=== PATIENT | male | born 1950 | race Caucasian/White ===

== ENCOUNTER 2018-11-05 14:36 | Emergency (ER) | payer OTHER, SELFPAY ==
[2018-11-05 14:37] VITALS: BP 145/95; PULSE 72; RESP 14; TEMP 36.8; O2SAT 97; BMI 25.8
--- NOTE | 2018-11-05 14:53 | RAD_ITS ---
STUDY: X-RAY - LEFT HAND REASON FOR EXAM: Male, 68 years old. Amputation. TECHNIQUE: 3 view(s) of the hand. COMPARISON: None. FINDINGS: Normal radiocarpal articulation. Normal distal radioulnar joint. Normal visualized carpal bones. Normal carpal articulations Normal carpometacarpal articulation of the thumb. Normal second through fifth carpometacarpal joints. Normal metacarpi. Normal metacarpophalangeal joint of the thumb. Normal interphalangeal joint of the thumb. Normal proximal and distal phalanges of the thumb. Normal metacarpophalangeal joints of the second through fifth fingers. Normal proximal and distal interphalangeal joints of the second through fifth fingers. There has been amputation of the distal phalanx of the index finger with overlying soft tissue swelling. Minimal remnant of the base of the distal phalanx of the index finger. Soft tissue laceration overlying the index finger. RAD/Hand Min 3 Views IMPRESSION: Amputation of the distal phalanx of the index finger. Electronically Signed: Raheem Rosario, at 15:19 EDT , Service support ,
[2018-11-05] MEDS: Diphth,Pertuss(Acell),Tet Vac 0.5 ML Vial IM (16:03)
[2018-11-05] MEDS: Cefazolin 1 GM/50 ML BAG IV (16:03)
[2018-11-05 16:07] LABS: Absolute Lymphocyte Count 1.24 X10^3/ul (0.83-4.51); Absolute Neutrophil Count 3.4 X10^3/uL (2.0-7.7); Basophil# 0.03 X10^3/uL; Basophil% 0.6 % (0-1); Eosinophil# 0.13 X10^3/uL; Eosinophils% 2.5 % (0-5); Hematocrit 39.7 % (40-54); Hemoglobin 13.6 g/dl (13.0-16.5); Lymphocyte # 1.24 X10^3/ul (4.0); Lymphocyte % 23.6 % (19-41); Mean Corp Hgb Conc 34.3 g/gl (32-36); Mean Corpuscular Hgb 29.1 pg (27.0-32.0); Mean Corpuscular Volume 84.8 fL (80-94); Mean Platelet Vol. 9.6 fl (6.2-12.0); Monocyte# 0.48 X10^3/uL; Monocyte% 9.1 % (0-10); Neutrophil # 3.37 X10^3/uL (2.7-7.7); Platelet Count 188 K/mm3 (150-450); RBC Distribution Width SD 45.5 fl (35.1-43.9); Red Blood Count 4.68 M/mm3 (4.6-6.2); White Blood Count 5.3 K/mm3 (4.4-11.0)
[2018-11-05 16:11] LABS: International Normalized Ratio 1.8
[2018-11-05 16:14] LABS: POSITIVE COUNT NO; POSITIVE DIFFERENTIAL NO; POSITIVE MORPHOLOGY NO
--- NOTE | 2018-11-05 16:38 | ED.VISSUMM ---
- ER Visit Summary Date of Service: 11/05/18 Chief Complaint: [Laceration left index finger] History of Present Illness: The patient is a 68 M [presents to the emergency department after sustaining an injury to his left index finger about 12:45 PM. Patient states that he was using a electric saw when he accidentally lacerated his left index finger and amputating the distal phalanx. Patient is right-hand dominant. Patient unsure of his last tetanus. 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 The DIP joint is exposed. No other significant injuries noted.] Test Results: [X-rays of the left index finger obtained showed an amputation of the distal phalanx through the base of the distal phalanx.] CBC with differential obtained showed a white count of 5.3, hemoglobin 13.6, hematocrit 40, placed 28. INR was 1.8. Emergency Department Course and Treatment: [Case was discussed initially with Dr. Jeannette James who asked that I irrigate the wound and attempt any type of soft tissue closure possible. Patient initially received Ancef 1 g IV and was given tetanus booster.] Laceration repair-patient had digital block performed using 8 cc 1% lidocaine. Wound was irrigated with copious saline. Wound was cleansed with Shur-Clens. Using 5-0 nylon a total of 2 single interrupted sutures placed to approximate the soft tissues. Clean dressing was applied. Treatment Plan: [Patient will see Dr. James in the office tomorrow for possible surgical intervention tomorrow. I feel patient will likely require a revision and partial amputation.] Disposition: [Discharged home stable condition. Patient will be given a prescription for Keflex and Percocet.] Impression: [Amputation of the left distal phalanx of index finger] This note was generated with Trulia dictation software. It may contain incorrect words, spelling, and punctuation that were not noted in review of the chart prior to signing ED Disposition - Plan for ED Patient: Referrals: Freddy Hay DO [Primary Care Provider] -
--- NOTE | 2018-11-05 16:42 | ED.DCSUM_ITS ---
- ER Visit Summary Date of Service: 11/05/18 Chief Complaint: [Laceration left index finger] History of Present Illness: The patient is a 68 M [presents to the emergency department after sustaining an injury to his left index finger about 12:45 PM. Patient states that he was using a electric saw when he accidentally lacerated his left index finger and amputating the distal phalanx. Patient is right-hand dominant. Patient unsure of his last tetanus. 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 The DIP joint is exp osed. No other significant injuries noted.] Test Results: [X-rays of the left index finger obtained showed an amputation of the distal phalanx through the base of the distal phalanx.] CBC with differential obtained showed a white count of 5.3, hemoglobin 13.6, hematocrit 40, placed 28. INR was 1.8. Emergency Department Course and Treatment: [Case was discussed initially with Dr. Jeannette James who asked that I irrigate the wound and attempt any type of soft tissue closure possible. Patient initially received Ancef 1 g IV and was given tetanus booster.] Laceration repair-patient had digital block performed using 8 cc 1% lidocaine. Wound was irrigated with copious saline. Wound was cleansed with Shur-Clens. Using 5-0 nylon a total of 2 single interrupted sutures placed to approximate the soft tissues. Clean dressing was applied. Treatment Plan: [Patient will see Dr. James in the office tomorrow for possible surgical intervention tomorrow. I feel patient will likely require a revision and partial amputation.] Disposition: [Discharged home stable condition. Patient will be given a prescription for Keflex and Percocet.] Impression: [Amputation of the left distal phalanx of index finger] This note was generated with [employer] dictation software. It may contain incorrect words, spelling, and punctuation that were not noted in review of the chart prior to signing ED Disposition - Plan for ED Patient: Referrals: Freddy Hay DO [Primary Care Provider] -
--- NOTE | 2018-11-05 16:42 | ED.DEP ---
ED Disposition - Plan for ED Patient: Instructions: ED Laceration Amputation Finger Tip Open Tx Prescriptions: Oxycodone HCl/Acetaminophen [Percocet 5/325] 1 tab PO Q6H PRN PRN 3 Days #12 tab PRN Reason: Pain Ondansetron [Zofran Odt] 4 mg PO Q8H PRN PRN #10 tab PRN Reason: Nausea Cephalexin [Keflex] 500 mg PO Q6 #40 cap Referrals: Freddy Hay DO [Primary Care Provider] - Komal James DO [STAFF PHYSICIAN] - 11/06/18 8:00 am Additional Instructions: Do not eat anything after Midnight tonight
[2018-11-05 17:12] VITALS: BP 138/77; PULSE 62; RESP 15; O2SAT 99
== END 2018-11-05 17:14 | disposition home or self-care (01) ==
LOC: ED 16:18
PROVIDERS: Emergency Provider Emergency Medicine; Family Provider Family Medicine; PCP Family Medicine
DX: S68.111A Complete traumatic metacarpophalangeal amputation of left index finger, initial encounter (principal); W27.0XXA Contact with workbench tool, initial encounter; Y93.9 Activity, unspecified; Y92.9 Unspecified place or not applicable; Z86.711 Personal history of pulmonary embolism; Z86.718 Personal history of other venous thrombosis and embolism; Z79.01 Long term (current) use of anticoagulants
CPT/HCPCS: 12001; 73130; 85025; 85610; 90715; 96365; 99284; J7050; A4216

== ENCOUNTER 2018-11-11 07:18 | Day surgery (SDC) | payer OTHER, SELFPAY ==
[2018-11-06 08:09] VITALS: BMI 25.8
[2018-11-11 07:38] VITALS: BP 118/84; PULSE 64; RESP 16; TEMP 36.6; O2SAT 100; BMI 27.0
[2018-11-11 07:40] LABS: Prothrombin Time Fingerstick 19.3 SEC (11.9-14.4)
[2018-11-11] MEDS: Cefazolin 2 GM in 0.9% Normal Saline 100 ML IV (08:29)
--- NOTE | 2018-11-11 08:35 | HP.PCM_ITS ---
History and Physical Date of Admission: 11/11/18 Intake Vital Signs 11/06/18 Body Mass Index (BMI) 25.8 Intake Visit Reasons: finger injury Allergies No Known Allergies Allergy (Verified 11/05/18 16:03) Medications Cephalexin [Keflex] 500 mg PO Q6 #40 cap 11/05/18 [Rx] Ondansetron [Zofran Odt] 4 mg PO Q8H PRN PRN #10 tab 11/05/18 [Rx] Oxycodone HCl/Acetaminophen [Percocet 5/325] 1 tab PO Q6H PRN PRN 3 Days #12 tab 11/05/18 [Rx] Warfarin [Coumadin ([facility])] 6 mg PO QODAY 11/05/18 [History Confirmed 11/05/18] Warfarin [Coumadin ([facility])] 7 mg PO QODAY 11/05/18 [History Confirmed 11/05/18] PFSH Social History Smoking Status: Never smoker HPI finger injury: Details: Parts of this documentation were recorded by a scribe, this docum entation accurately reflects the service provided and the decisions made by me, Komal James, 11/06/18 0757. BELKIS APARICIO is a 68 year old M here today for F/U from ER visit yesrterday. Patient was at work around 1245 on 11/05/18. He was using the saw cutting wood and his left index finger went under the saw blade and the blade amputated his left index finger off. He then went tot he ER and the ER was instructed to tack his finger tip back on. He is here today for follow-up and for surgical revision. Patient has a dressing on finger this day that he has bleed through. He is taking Percocet that he was given at the ER. Patient states his pain is only 3/10. Patient is also on Coumadin tx, patient has history of PEs, and blood clots in legs and also has not started his prescribed antibiotic given to him by er. tetanus was given in ER. Denies numbness, tingling or other associated symptoms. ROS Const Reports system reviewed and no additional complaints, except as docu Eyes Reports system reviewed and no additional complaints, except as docu ENT Reports system reviewed and no additional complaints, except as docu Card Reports system reviewed and no additional complaints, except as docu Resp Reports system reviewed and no additional complaints, except as docu GI Reports system reviewed and no additional complaints, except as docu Reports system reviewed and no additional complaints, except as docu Musc Reports as per HPI Skin/Breast Reports system reviewed and no additional complaints, except as docu Neuro Yes system reviewed and no additional complaints, except as docu Psych Reports system reviewed and no additional complaints, except as docu Endo Reports system reviewed and no additional complaints, except as docu Rich/Lymph Reports system reviewed and no additional complaints, except as docu Aller/Immun Reports system reviewed and no additional complaints, except as docu Assessment & Plan Problems 1. Complete traumatic metacarpophalangeal amputation of unspecified finger, initial encounter S68.119A Plan X-rays were reviewed. There is no obvious fracture, dislocation, or lucency noted. Personally reviewed the patient's medical history, medications, surgeries and recent exams if available. Explained that he has bone that needs revised and today we will re-dress and sign consent for revision surgery. He has moderate swelling today and will do surgery on Friday next week. Reviewed the risk of needing skin graft, instructed to elevate the hand as much as possible for swelling reduction. There is also a cut on the third finger pulp that we will debride and dress as well. He should also soak in dreft BID and redress. Reviewed the pre-operative plans with the patient. Risks and benefits of the procedure were fully explained, including but not limited to infection, neurovascular injury, continued pain, arthritis, stiffness, need for further surgery, re-injury, DVT, PE, general risks of anesthesia, and loss of limb or life. The patient understands all the risks and does wish to proceed with written consent. Follow up post op or sooner if pain, swelling, numbness or associated symptoms, or concerns develop. All questions answered. Patient in agreement of plan. Coding Level of Care Code Off vis,new,level 3 Diagnoses Complete traumatic metacarpophalangeal amputation of unspecified finger, initial encounter S68.119A I have re-examined the patient. There are no clinical changes since date of exam
--- NOTE | 2018-11-11 09:30 | DCINST_ITS ---
Discharge Diet: No Restrictions - follow up in office on friday at 900am for dressing change and incision check, move finger as tolerated Discharge Activity: May Not Drive May shower in (days): 1 Ice area for (Minutes): 20 - Every hour while awake. Weight Bearing Status: Weight bearing as tolerated Keep extremity elevated above heart level: Operative Extremity Call your doctor if your incision/area has: Continuous Slow Oozing, Sudden Increased Bleeding, Increased Pain/ Swelling, Increased Redness, Foul Smelling Discharge Call your doctor if you observe: Fever of 101 or Higher, Coldness, Increased Pain, Numbness or Tingling, Change in Color, Calf discomfort Allergies/Adverse Reactions: Allergies No Known Allergies Allergy (Verified 11/09/18 10:34) Medications to take at Discharge Cephalexin [Keflex] 500 mg PO Q6 #40 cap 11/05/18 Warfarin [Coumadin ([facility])] 6 mg PO QODAY 11/05/18 Warfarin [Coumadin ([facility])] 7 mg PO QODAY 11/05/18 Primary Care Physician: Freddy Hay DO [Primary Care Provider] - Test Results: Test results from this visit will be discussed in further detail at your follow- up appointment, if applicable. Please Follow Up With: Komal James DO - [phone]
--- NOTE | 2018-11-11 09:30 | PCM.OPRPT ---
Report of Operation Date of Procedure: 11/11/18 Pre-Operative Diagnosis: left index finger amputation Post-Operative Diagnosis: same Surgery/Procedure Performed:: left index finger revision amputation Type of Anesthesia:: Block,[place], Local Anesthesiologist: Cecil Adame Fluids Replaced: 400cc lr Description of Procedure: Preop note Patient is a 68-year-old male who had an injury to his left index finger after saw at work. Pain deformity and soft tissue loss seen in the emergency room temporarily states back together was seen in my office. He had a quite significant swelling over the weekend was told to soak in draft to decrease some of the swelling to see if we can get this primarily closed without needing graft. Risks benefits and alternatives surgery discussed with patient. Risks including but not limited to blood loss, blood clot, infection, neurovascular injury, failure procedure, loss of life and loss of limb need for revision surgery. Patient is aware like proceed with left revision amputation of the index finger. Operative note Patient seen and examined preoperative holding area. Left index finger was marked. Patient brought to the operating placed supine on the operating table. Signing, anesthesia, antibiotics are Mr. The left arm was prepped and draped in usual sterile fashion with tourniquet on his upper arm after [place] block was initiated. Timeout was performed. We then irrigated the incision made in the previous amputation. We debulked some of the maceration around the wound. There was some fragments of bone that removed 1 of them was attached to a his flexor tendon which was then sewed back down on top to soft tissue on either side just distal to the middle phalanx to maintain flexion of his and prevent retraction with 4-0 Ethibond. We then irrigated the incision with the wound with copious muscle sterile saline to both with the bone were again removed bone developed soft tissue were able to primarily closed with a tension-free repair. Using 4-0 nylon. Dressings were applied tourniquet was deflated for total working time of 48 minutes. Patient tolerated procedure well no complication transferred recovery room in stable condition made Postoperative note Next Follow-up in 2 days Discussed with family Call with increased pain numbness tingling further issues arise Dragon disclaimer
[2018-11-11 09:34] VITALS: BP 112/88; BP 118/84; PULSE 57; RESP 16; TEMP 36.1; O2SAT 97
[2018-11-11 09:39] VITALS: BP 118/84; BP 121/85; PULSE 56; RESP 16; O2SAT 97
[2018-11-11 09:44] VITALS: BP 118/84; BP 120/81; PULSE 58; RESP 17; O2SAT 98
[2018-11-11 09:49] VITALS: BP 118/84; BP 129/84; PULSE 62; RESP 16; TEMP 36.3; O2SAT 98
[2018-11-11 10:23] VITALS: BP 118/84
== END 2018-11-11 10:41 | disposition home or self-care (01) ==
LOC: SDC 07:20 → AC 07:21
PROVIDERS: Family Provider Family Medicine; PCP Family Medicine; Referring Provider Orthopaedic Surgery; Visit Provider Orthopaedic Surgery
PROC: (CPT 26951; principal; 2018-11-11 08:45)
DX: S68.111A Complete traumatic metacarpophalangeal amputation of left index finger, initial encounter (principal); W27.8XXA Contact with other nonpowered hand tool, initial encounter; Y93.89 Activity, other specified; Y92.89 Other specified places as the place of occurrence of the external cause; Y99.0 Civilian activity done for income or pay; Z86.711 Personal history of pulmonary embolism; Z86.718 Personal history of other venous thrombosis and embolism; Z79.01 Long term (current) use of anticoagulants
CPT/HCPCS: 26951; 36416; 85610; J7120; A4216

== ENCOUNTER 2018-11-20 09:30 | Outpatient (RCR) | payer OTHER, SELFPAY ==
[2018-11-20 08:35] VITALS: BMI 27.0
--- NOTE | 2018-11-25 13:36 | HP.OTEVAL ---
Patient's Visit Information BELKIS APARICIO is a 68 year old M, referred to Occupational Therapy by Komal James DO, with a diagnosis of left IF distal phal amputation. Date of Evaluation: 11/20/18 Occupational Therapist: Rose Florez, SALMAR/L, CHT - Subjective Subjective: This 68 year old male was seen with dx of finger tip amputation- Patient states that he was using a electric saw when he accidentally lacerated his left index finger and amputating the distal phalanx on October, and underwent sx on November 11, 2018. Today pt arrives from office in need of a custom orthosis. Pt state he just had his stitches out this am and that his finger is feeling fine. pt states he is feeling better about the sx and ready to cont work. has requested protective orthosis, ROM and edema mtg. - Goals Goal:: pt will demo the ability to use left UE for daily occupations without dropping by d.c Goal:: Pt will demo the ability to form a composite fist to hold and receive 10 coins without dropping coins/ and coin manipulation/money mtg. tasks by D/C Goal:: pt demo understanding of scar mtg and desensitization to return use of left IF with tasks by d/c. - Rehabilitation General Assessment: Pt demo with healing incision, and in need of custom orthosis to provide protection and support during healing. PT would benefit from skilled OT services 1-2 x week for 3 -4 weeks to ensure pt returns to PLOF. Today pt was ed. on orthosis use, ROM and edema control with coband. pt demo understanding. Therapist advised pt to return to ensure fit of orthosis and healing of incision, pt declined and flet he would be fine. Pt given contact information to call if he had question or concerns pt agreed. Rehabilitation Potential: Good - Anticipated Interventions Anticipated Interventions: A/AAROM/PROM, Desensitization, Wound Care, Orthoses, Fine Motor Coord/Too - Visit Plan Frequency: 1-2x /Week Duration: 3 Weeks TEXT: Thank you for the opportunity to evaluate your patient. For Medicare and Medicare HMO plans, please review the plan of care and approve it. It will need to be FAXED BACK to us at [phone] for Medicare purposes. Please let me know if there are questions or concerns regarding this plan of care. Physician Signature: Date:
--- NOTE | 2019-01-27 16:20 | HP.OT.NRP ---
HP - Discharge Summary - Patient Information BELKIS APARICIO was seen in my office for initial evaluation on 11/20/18. The following Plan of Care was established for this patient: Initial Frequency: 1-2x /Week Initial Duration: 3 Weeks - Anticipated Interventions Anticipated Interventions: A/AAROM/PROM, Desensitization, Wound Care, Orthoses, Fine Motor Coord/Too This patient was last seen in our office 11/20/18. Pertinent comments regarding their Occupational therapy will appear below: Pt was seen for OT eval only- pt did not return for further apts and due to time lapse in therapy services is D/C at this time. At this point I will be discontinuing this patient from occupational therapy. I would be happy to see this patient again in the future if found appropriate by the physician. Thank you! Rose Florez, OTR/L, CHT
== END 2018-11-20 19:00 | disposition home or self-care (01) ==
LOC: OT 09:30
PROVIDERS: Family Provider Family Medicine; PCP Family Medicine; Referring Provider Orthopaedic Surgery; Visit Provider Orthopaedic Surgery
DX: Z89.022 Acquired absence of left finger(s) (principal)
CPT/HCPCS: 97166; 97760

== ENCOUNTER → 2025-01-26 | Outpatient (CLI) | payer OTHER, SELFPAY ==
--- NOTE | 2025-01-26 08:46 | MRI_ITS ---
PROCEDURE: MRI ABD WITH AND W/O CONTRAST, 01/26/2025 REASON FOR EXAM: LIVER MASS TECHNIQUE: Multiplanar multisequence MRI abdomen was performed with and without IV contrast. IV contrast: 17 mL Clariscan COMPARISON: None FINDINGS: Variable overall mild motion limitation. A few sequences are mild/moderately motion degraded. T2 fat-sat was not performed. Liver: 7.6 x 7.5 cm cyst in the subcapsular RIGHT hepatic dome. Additional 1.0 cm cyst in the inferior RIGHT lobe.. Spleen: Unremarkable. Gallbladder/biliary: Cholecystectomy. Mild intrahepatic biliary dilatation. CBD mildly dilated to 9 mm. Pancreas: Unremarkable. Adrenals: Unremarkable. Kidneys: Tiny cyst on the RIGHT.. Bowel: Not well evaluated by MRI; no gross bowel dilatation.. Diverticulosis. Lymph nodes: Unremarkable. Vasculature: Atherosclerosis. Abdominal aortic ectasia to 2.5 cm, not well evaluated by MRI. Peritoneum: Unremarkable. Body Wall: Partially imaged fat containing RIGHT presumably spigelian hernia. Tiny fat containing umbilical hernia. Bones: Mild lumbar levoscoliosis. Multilevel spondylosis incompletely evaluated.. MRI/MRI Abd WITH and W/O Contrast IMPRESSION: 1. No suspicious hepatic lesion identified. Cysts up to 7.6 cm. Correlate wit h reported outside imaging. 2. Cholecystectomy with mild biliary dilatation which is frequently related to post cholecystectomy effect. In the absence of priors to assess stability, correlate with serum bilirubin and consider ERCP as indicated if there is concern for ampullary stenosis or other occult obstructing josiane-ampullary process. 3. Abdominal aortic ectasia to 2.5 cm. Recommend follow-up in 5 years per 2013 ACR recommendations. 4. Additional description as above. Reading Location: [id number]
== END | disposition home or self-care (01) ==
PROVIDERS: PCP Nurse Practitioner Family; Referring Provider Surgery; Visit Provider Surgery
DX: R16.0 Hepatomegaly, not elsewhere classified (principal)
CPT/HCPCS: 74183; A9575; A4216

== ENCOUNTER 2025-02-14 09:12 | Day surgery (SDC) | payer SELFPAY, OTHER ==
[2025-02-14] VITALS (13 sets, daily range): BP systolic 131–167; BP diastolic 74–89; PULSE 62–78; RESP 16; TEMP 36.4–36.6; O2SAT 93–100; BMI 28.8
[2025-02-14 09:24] LABS: INR Fingerstick 1.3
--- NOTE | 2025-02-14 09:42 | EKG12_ITS ---
Test Reason : PRE OP Blood Pressure : */* mmHG Vent. Rate : 69 BPM Atrial Rate : 69 BPM P-R Int : 164 ms QRS Dur : 82 ms QT Int : 394 ms P-R-T Axes : 32 43 28 degrees QTcB Int : 422 ms Normal sinus rhythm Normal ECG When compared with ECG of 19-Jul-2011 21:01, No significant change was found Confirmed by JOSE BAUMAN, COLLIN ([id number]), editorial writer DOLORES OLIVAS ([id number]) on 02/16/2025 9:32:39 AM Referred By: Rogelio Aleman Confirmed By: COLLIN GARCIA MD
[2025-02-14] MEDS: Lactated Ringers 1,000 ML 15 ML IV (10:03)
--- NOTE | 2025-02-14 10:09 | HP.PCM_ITS ---
History and Physical Intake Vital Signs 01/20/2508:00 Height 5 ft 7 in Weight: 190 lb BMI 29.7 BP 148/82 H Blood Pressure Location Lt brachial Position Sitting Respiration 17 Pulse 69 Pulse Source Monitor Pulse Oximetry (%) 96 Oxygen Delivery Method room air Intake Visit Reasons: HERNIAS Chief Complaint: hernias Accompanied by: Is patient in pain?: No Allergies No Known Allergies Allergy (Verified 11/09/18 10:34) Have you fallen in the past year?: No PFSH Surgical History (Updated 01/19/25 @ 08:00 by Arabella Sainz) History of cholecystectomy Social History Smoking Status: Never smoker HPI HPI HPI: Patient is a 74-year-old male here with right upper quadrant hernia. The patient had an open cholecystectomy in the past and it seems that the hernia is located at the incision from this. He says it bothers him. He is not having any problems from his umbilical hernia or his inguinal hernias. ROS General General: Yes fatigue; No weight change, appetite, colon cancer, breast cancer or weakness HEENT HEENT: No difficulty swallowing, eye injury, eye surgery, swollen glands or hoarseness Endo Endocrine: No thyroid disease, diabetes mellitus, thyroid cancer, Hair loss, heat intolerance or cold intolerance Skin Skin: No rash or changing moles Musc Musculoskeletal: No back problems, arthritis, rheumatoid arthritis, gout or joint pain Cardio Cardiovascular: No murmur, pacemaker, heart disease, atrial fibrillation, high blood pressure, heart attack, heart stent, palpitations, shortness of breath with exertion or chest pain Psych Psychiatric: No depression, anxiety or hearing voices Resp Respiratory: No shortness of breath, No sleep apnea, No cough, No COPD, No asthma, No emphysema and No wheezing Gastro Gastrointestinal: No abdominal pain, No nausea or vomiting, No diarrhea, No constipation, No blood in stool, No acid reflux, No hemorrhoids, No ulcers, No gallbladder problem and No black,tarry stools Rich Hematologic: Yes blood thinners, No blood disorders, No bleeding, No anemia and Yes blood clots Additional Details: h/o clots in lungs in 2000, 2008 Neuro Neurologic: No system reviewed and no additional complaints, except as documented, No as per HPI, No abnormal gait, No abnormal hearing, No abnormal movements, No abnormal speech, No behavioral changes, No burning sensations, No confusion, No convulsions, No disequilibrium, No dizziness, No localized weakness, No frequent falls, No headache(s), No lack of coordination, No loss of vision, No memory loss, No numbness, No other visual disturbances, No radicular pain, No restless legs, No sensory deficit, No syncope, No tingling, No tremor(s), No weakness and No other Exam Const General: cooperative Orientation: alert and oriented x3 HENAL Head: normal to inspection Neck Neck: normal visual inspection and full ROM Chest Chest palpation & inspection: normal inspection of the chest Resp Effort & Inspection: normal respiratory effort Auscultation: clear to auscultation bilaterally Cardio Rate: regular rate Rhythm: regular rhythm GI Inspection: non-distended Palpation: soft, hernia ventral and nontender Skin General: no rashes or lesions noted Neuro General: patient alert and patient oriented x3 Extrem General: full ROM Psych Appearance: grossly normal Mental Status: mental status grossly normal Assessment and Plan Assessment and Plan (1) Liver mass: Plan: The patient has a 7 cm cystic mass in the right lobe of the liver. I would like to order an MRI to better characterize this mass before fixing the hernia. (2) Ventral hernia: Status: Acute Plan: The patient has what appears to be a spigelian hernia at his incision where the hernia is herniating fat through the posterior wall of the rectus muscle but not through the anterior wall. I discussed laparoscopic repair with him in detail. I discussed the risks and benefits. I will schedule him for laparoscopic surgery after I receive the MRI report. Rogelio Aleman MD Pager: [facility] [address] [place] [address], [address] [place] [address] Office: I have examined the patient and the H&P has been reviewed. There are no clinical changes since date of exam.
--- NOTE | 2025-02-14 10:30 | PCM.PRE.AN2 ---
ASA Classification* ASA Classification ASA Classification: 2 Assessment & Plan Anesthesia* Anesthesia Assessment Anesthesia Assessment: Discussed sedation and/or anesthesia options, risks, benefits, and alternatives with patient/parents/legal guardian/POA. Questions invited. The patient/parents/legal guardian/POA seems to understand and agrees to proceed with anesthesia plan. Reviewed the physical assessment, medical history, allergy history and patient home medications list prior to surgery/procedure/anesthetic and documented any changes. Performed airway and anesthesia risk assessments. Anesthesia Type Anesthesia Type: General History Source History Obtained from:: Patient and Chart Anesthesia Focused Assessment* Temperature: 97.7 F Pulse Rate: 72 Blood Pressure: 167/89 Respiratory Rate: 16 Pulse Ox: 98 Oxygen Delivery Method: Room Air Airway Assessment Mouth opens: 2 cm Mallampati Score: II Teeth Condition: Dentures (top) Neck Range of motion (ROM): Full ROM Labs Anesthesia Preop lab: CBC WBC 5.3 K/mm3 (4.4-11.0) 11/05/18 15:50 11/05/18 RBC 4.68 M/mm3 (4.6-6.2) 11/05/18 15:50 11/05/18 Hgb 13.6 g/dl (13.0-16.5) 11/05/18 15:50 11/05/18 Hct 39.7 % (40-54) L 11/05/18 15:50 11/05/18 Plt Count 188 K/mm3 (150-450) 11/05/18 15:50 11/05/18 CHEMISTRY COAG PT 21.0 SECONDS (11.7-14.9) H 11/05/18 15:50 11/05/18 Pre-Assessment Diagnosis/Proposed Procedure Planned Operative Procedure(s): Hernia, lap Ventral Repair w/ Mesh possible open Anesthesia History 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 When Was Last Pacemaker Check QUESTION #4 FULL TEXT: You/Your Family Experience fever (hyperthermia) with Anesthesia Any additional information?: No Last Oral Intake Last Oral intake: Last Oral Intake NPO since 17:30 02/14/25 10:04 Meds taken in AM with sips of No 02/14/25 10:04 water? Meds patient instructed to take am of surgery Any additional information?: No PONV PONV - agricultural sales representative: PONV - agricultural sales representative Female No 02/04/25 14:51 HX of Motion Sickness No 02/04/25 14:51 HX of N/V After Surgery Yes 02/04/25 14:51 Non-Smoker Yes 02/04/25 14:51 Duration of Surgery greater Yes 02/04/25 14:51 than 60 minutes Number of Risk Factors 3 02/04/25 14:51 PONV Score Moderate Risk 02/04/25 14:51 Height & Weight Height & Weight: Anesthesia: Height & Weight Height 5 ft 7 in 02/14/25 10:04 Weight: 83.3 kg 02/14/25 10:04 Body Mass Index (BMI) 28.8 02/14/25 10:04 Respiratory Assessment Respiratory Assessment - agricultural sales representative: Respiratory Tract Infection Hx - agricultural sales representative Hx Respiratory Tract Infection No 02/04/25 14:51 Any additional information?: No STOP Sleep Apnea STOP Sleep Apnea - agricultural sales representative: STOP Sleep Apnea - agricultural sales representative Hx Hypertension No 02/04/25 14:51 Hx Sleep Apnea No 02/04/25 14:51 CPAP BIPAP Do you snore loudly (louder No 02/04/25 14:51 than talking or can be heard Do you often feel tired/ No 02/04/25 14:51 fatigued/ sleepy during daytime? Has anyone observed you stop No 02/04/25 14:51 breathing during sleep? STOP Results Negative 02/04/25 14:51 QUESTION #5 FULL TEXT : Do you snore loudly (louder than talking or can be heard through closed doors)? Any additional information?: No Tobacco Use History Tobacco Use History - agricultural sales representative: Tobacco Use History - agricultural sales representative Tobacco Use Non-smoker 11/09/18 10:39 Smoking Status Never smoker 02/04/25 14:51 Hx Tobacco Use No 02/04/25 14:51 Years Smoking Packs Smoked per Day Smoking Cessation Date was within the last 15 years Hx Smoking Cessation Date Hx Smoking Cessation Counseling Any additional information?: No Hematologic Medial History Hematologic Hx - agricultural sales representative: Hematologic Medical Hx - documentation clerk Hx of Blood Transfusion No 02/04/25 14:51 Hx of Transfusion in last 3 No 02/04/25 14:51 Months Date of Last Transfusion (if within last 3 months) Ever experience any problems No 02/04/25 14:51 with transfusion(s)? Specify any problems Hx of Preganancy in last 3 N/A 02/04/25 14:51 Months Nurse Filling Out Transfusion JZOLLINGE 02/04/25 14:51 & Questions: Date: 02/04/25 02/04/25 14:51 Time: 14:52 02/04/25 14:51 Patient unable to answer at this time (ie. confused, unrespo Any additional information?: No /Reproduction History /Reproductive History - agricultural sales representative: /Reproductive Hx- agricultural sales representative Hx Now No 02/04/25 14:51 Gestational Age (in weeks): EDC: Hx Hx Para Hx Section SAB No 02/04/25 14:51 Any additional information?: No Active Medications Active Medications: Current Medications Generic Name Dose Route Start Last Admin Trade Name Freq PRN Reason Stop Dose Admin Cefazolin Sodium 2 gm/ Sodium 110 mls @ 200 mls/hr 02/14/25 11:00 Chloride IV 02/14/25 11:32 INTRAOP ONE Lactated Ringer's 1,000 mls @ 15 mls/hr 02/14/25 09:30 02/14/25 10:03 IV 15 mls/hr .Q48H EBEN Administration PFSH Medical History Wears glasses Wears dentures Depression Anxiety Open wound Easy bruising Hx of pulmonary embolus Non-smoker Home Medications ?Medication ?Instructions ?Recorded ?Last Taken ?Type warfarin 5 mg tablet 6 mg PO QDAY 01/19/25 02/07/25 History Allergy/AdvReac Type Severity Reaction Status Date / Time No Known Allergies Allergy Verified 02/14/25 10:00 Surgical History (Updated 02/04/25 @ 14:50 by Dorothy Hunt) History of cholecystectomy Social History Smoking Status: Never smoker Review of Systems (Anesthesia) ROS Narrative System reviewed and no additional complaints, except as documented.
[2025-02-14] MEDS: Lactated Ringers 1,000 ML 1000 ML IV (10:42)
[2025-02-14] MEDS: Midazolam 2 MG/2 ML Syringe 1.5 MG IV (10:42)
[2025-02-14] MEDS: Cefazolin 1 GM/5 ML Vial 2 GM IV (10:48)
[2025-02-14] MEDS: Lidocaine 1% (5 ml sdv) 5 ML Vial 4 ML IV (10:48)
[2025-02-14] MEDS: fentaNYL 100 MCG/2 ML Ampul IV (11:03)
[2025-02-14] MEDS: Bupiv/Epi 0.25% 30 ML Vial (11:26)
--- NOTE | 2025-02-14 11:34 | PCM.OPRPT ---
Operative Report (Standard) Operative Information Date of Procedure: 02/14/25 Pre-Operative Diagnosis: Ventral hernia Post-Operative Diagnosis: Ventral hernia Surgery/Procedure Performed: Laparoscopic ventral hernia repair with mesh healthcare representative: Yes It Service Continuity Supervisor: Sherlyn Burris Tasks completed by assistant chief nursing officer: Opening & closing and Retracting Type of Anesthesia: General/Regional RN Documented Start/Stop Times: Operation Date: 02/14/25 11:00 Case Time Into Pre-Op 02/14/25 09:28 Anesthesia Start 02/14/25 10:42 Into Room 02/14/25 10:42 Out of Pre-Op 02/14/25 10:42 Procedure Start 02/14/25 11:01 Procedure Start Time: 11:01 Procedure Stop Time: 11:40 Select all DRAINS/GRAFTS/IMPLANTS that apply: Implanted device Implanted device details: [address] mesh Estimated Blood Loss: 10 Specimen collected: No Description of surgery: Patient was brought back to the operating room and general anesthesia was induced. The abdomen was prepped and draped in usual sterile fashion. An incision was made in the left upper quadrant and using Visiport technique the abdomen was entered and insufflated to 15 mmHg. Next under direct visualization a left lower quadrant 5 mm port was placed and a suprapubic 5 mm port was placed. The omentum appeared to be in the spigelian hernia and it was reduced easily. Dissecting superior to this there were several [place] cheese defects from his open Marylin incision. These were cleaned off as well. Once there was good visualization of the hernias, the area was measured and an [address] mesh was chosen. An incision was made over the hernia and a 12 mm port was placed. The mesh was placed through the port and the port was removed. The echo positioning device was inflated and clipped in place with a hemostat. Next using secure strap tacker the mesh was tacked to the anterior abdominal wall in 4 quadrants and then the balloon was removed. Next the secure strap was used to tack the mesh circumferentially in 2 rows. This completely covered all of the hernia defects. Next the instruments were removed and the ports were removed and the abdomen was allowed to desufflate. The incisions were injected with local anesthetic and closed with interrupted 4-0 Monocryl sutures. Steri-Strips and bandages were applied. Patient was awoken and taken to PACU in stable condition. Surgical Findings: Spigelian hernia 3 cm Complications Complications: No Admit VTE Documentation VTE Mechan Device Prophylaxis: SCD's
--- NOTE | 2025-02-14 11:38 | DCINST_ITS ---
Discharge Instructions Procedure Hernia Diet Discharge Diet: Light diet - advance as tolerated Activity Discharge Activity: May Not Drive (for 2-3 days or while taking narcotic pain meds.) and May Shower (with the bandage in place 1-2 days after surgery.) Lifting Restrictions: 15 pounds for 4 weeks. Additional Activity Instructions:: Climbing stairs is fine, walking is encouraged. Sitting in bed may be uncomfortable. Sitting up using your lateral muscles (sitting up sideways) is usually more comfortable. Do not drive, work heavy equipment of sign legal documents for 24 hours. Pain medications may cause nausea, you should typically eat light foods as you take your pain medications. Pain medications may also cause constipation. If you have difficulty with this, discuss with your doctor. Alternate ibuprofen and Tylenol for pain control, oxycodone for breakthrough pain Resume Coumadin on Friday Dressing / Incision Call your doctor if your incision/area has: Continuous Slow Oozing, Sudden Increased Bleeding, Increased Pain/ Swelling, Increased Redness and Foul Smelling Discharge Call your doctor if you observe: Fever of 101 or Higher Suture Line Care: Avoid Pulling/Pushing and Avoid Pinching/Bending Remove Dressing in: 2 days (Remove clear bandages in 2 days, remove Steri-Strips in 7 to 10 days.) Cleanse incision/area with: Soap & Water Follow Up Care Please Follow Up With: Rogelio Aleman MD When: Please call to schedule 2 week follow up appointment. [phone] Test Results: Test results from this visit will be discussed in further detail at your follow- up appointment, if applicable. Discharge Plan Admission Attending Provider: Rogelio Aleman Primary Care Provider: Mari Leiva NP Instructions Print Language: Vietnamese Discharge Orders/Prescriptions Prescriptions: New oxycodone 5 mg Tablet 5 - 10 mg PO Q4H PRN PRN (Reason: Pain Score 4-10) 5 Days Qty: 20 0RF No Action warfarin 5 mg tablet 6 mg PO QDAY Referrals / Follow Up: Mari Leiva NP, [facility] [Primary Care Provider] - Disposition Disposition (needs filled in before D/C Order can be placed): Home, Self Care
--- NOTE | 2025-02-14 11:46 | PCM.POST.ANE ---
Anesthesia: Postop Eval I Current Vital Signs Temperature: 97.5 F Pulse Rate: 73 Blood Pressure: 139/77 Respiratory Rate: 16 Pulse Ox: 100 Oxygen Delivery Method: Room Air Assessment Airway patent: Yes Spontaneous unlabored respirations: Yes Mental status: Awake nausea: No Vomiting: No Anesthesia Complication: No Fluid Hydration Crystalloid volume administer (ml): 900 Total IV fluid infused: 900 Progress Note Anesthesia document: Postop Eval 1 completed: Yes
== END 2025-02-14 14:32 | disposition home or self-care (01) ==
LOC: SDC 09:16 → AC 09:19
PROVIDERS: PCP Nurse Practitioner Family; Referring Provider Surgery; Visit Provider Surgery
PROC: 0WQF4ZZ Repair Abdominal Wall, Percutaneous Endoscopic Approach (ICD-10-PCS; CPT 49593; principal; 2025-02-14 10:40)
DX: K43.9 Ventral hernia without obstruction or gangrene (principal); Z90.49 Acquired absence of other specified parts of digestive tract; K42.9 Umbilical hernia without obstruction or gangrene; K40.90 Unilateral inguinal hernia, without obstruction or gangrene, not specified as recurrent; Z79.01 Long term (current) use of anticoagulants; R16.0 Hepatomegaly, not elsewhere classified
CPT/HCPCS: 49593; 36416; 85610; 93005; J2405